=== PATIENT | male | born 1990 | race African-American/Black ===

== ENCOUNTER 2020-12-16 13:48 | Emergency (ER) | payer SELFPAY ==
[~2020-12-16] VITALS: Ht 185.4 cm; Wt 79.7 kg
[2020-12-16] MEDS ORDERED: IV RINGERS SOLUTION,LACTATED 1,000 ML IV ONE (14:00)
[2020-12-16] MEDS ORDERED: ONDANSETRON PF 4 MG/2 ML VIAL. IVP ONE (14:00)
[2020-12-16 14:32] LABS: CALCIUM 9.6 mg/dL (8.5-10.1); CREATININE 1.4 mg/dL (0.7-1.3); GFR 59.9; POTASSIUM 3.6 mmol/L (3.5-5.1)
[2020-12-16 14:33] LABS: BASO % 1 % (0-3); EOS # 0.1 x10^3/uL (0.0-0.7); EOS % 2 % (0-3); HEMATOCRIT 42.9 % (39.0-53.0); LYMPH # 1.2 x10^3/uL (1.0-4.8); LYMPH % 27 % (24-48); MEAN CORPUSCULAR HEMOGLOBIN 30 pg (25-35); MEAN CORPUSCULAR HGB CONC 33 g/dL (31-37); MEAN CORPUSCULAR VOLUME 93 fL (79-100); MONO # 0.3 x10^3/uL (0.0-1.1); MONO % 7 % (0-9); NEUT # 2.7 x10^3uL (1.8-7.7); NEUT % 63 % (31-73); PLATELET COUNT 190 x10^3/uL (140-400); RED BLOOD COUNT 4.62 x10^6/uL (4.30-5.70); RED CELL DISTRIBUTION WIDTH 14.1 % (11.5-14.5); WHITE BLOOD COUNT 4.2 x10^3/uL (4.0-11.0)
--- NOTE | 2020-12-16 14:35 | PHYS DOC ---
Past History Past Medical History: No Pertinent History Past Surgical History: No Surgical History Alcohol Use: Occasionally Adult General Chief Complaint Chief Complaint: SYNCOPE HPI HPI Patient is a 30-year-old male presents to the emergency department via EMS for a near syncopal episode while working today. Patient reports he went out drinking last night, states he drank a half a pint or so of whiskey. Patient states he did not eat any food last night or this morning or this afternoon. Patient states he drank some water. Patient states he also drinks some Gatorade. 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 Patient states he became very hot and dizzy and thought he might pass out. Patient states his coworkers became worried and called 911 who brought him to the emergency department. Patient denies any loss of consciousness, diaphoretic episodes, chest pain, shortness of breath, recent fever chills, denies vision changes. Patient states he smokes cigarettes, denies illicit drug use. Patient denies any other physical complaints or physical concerns. Review of Systems Review of Systems 14 body systems of review of systems have been reviewed. See HPI for pertinent positives and negative responses, otherwise all other systems are negative, nonpertinent or noncontributory. Current Medications Current Medications Current Medications Medications (Trade) Dose Ordered Sig/Maine Start Time Stop Time Status Last Admin Dose Admin Lactated Ringer's 1,000 ml @ 0 mls/hr 1X ONCE 12/16/20 14:00 12/16/20 14:13 DC 12/16/20 14:12 1,000 MLS/HR Ondansetron HCl (Zofran) 4 mg 1X ONCE 12/16/20 14:00 12/16/20 14:13 DC 12/16/20 14:12 4 MG Allergies Allergies Allergies Coded Allergies Type Severity Reaction Last Updated Verified No Known Drug Allergies 12/16/20 No Physical Exam Physical Exam Constitutional: Well developed, well nourished, no acute distress, non-toxic appearance. 30-year-old male no apparent distress. HENT: Normocephalic, atraumatic, bilateral external ears normal, oropharynx moist, no oral exudates, nose normal. Eyes: PERRLA, EOMI, conjunctiva normal, no discharge. Neck: Normal range of motion, no tenderness, supple, no stridor. No meningismus signs, no nuchal rigidity. Cardiovascular:Heart rate regular rhythm, no murmur heart sounds S1-S2 auscultation. Lungs & Thorax: Bilateral breath sounds clear to auscultation no adventitious lung sounds appreciated. Abdomen: Bowel sounds normal, soft, no tenderness, no masses, no pulsatile masses. Skin: Warm, dry, no erythema, no rash. Back: No tenderness, no CVA tenderness. Extremities: No tenderness, no cyanosis, no clubbing, ROM intact, no edema. Neurologic: Alert and oriented X 3, normal motor function, normal sensory function, no focal deficits noted. Psychologic: Affect normal, judgement normal, mood normal. Current Patient Data Vital Signs Laboratory Tests Test 12/16/20 14:08 White Blood Count 4.2 x10^3/uL Red Blood Count 4.62 x10^6/uL Hemoglobin 14.0 g/dL Hematocrit 42.9 % Mean Corpuscular Volume 93 fL Mean Corpuscular Hemoglobin 30 pg Mean Corpuscular Hemoglobin Concent 33 g/dL Red Cell Distribution Width 14.1 % Platelet Count 190 x10^3/uL Neutrophils (%) (Auto) 63 % Lymphocytes (%) (Auto) 27 % Monocytes (%) (Auto) 7 % Eosinophils (%) (Auto) 2 % Basophils (%) (Auto) 1 % Neutrophils # (Auto) 2.7 x10^3uL Lymphocytes # (Auto) 1.2 x10^3/uL Monocytes # (Auto) 0.3 x10^3/uL Eosinophils # (Auto) 0.1 x10^3/uL Basophils # (Auto) 0.0 x10^3/uL Sodium Level 140 mmol/L Potassium Level 3.6 mmol/L Chloride Level 101 mmol/L Carbon Dioxide Level 23 mmol/L Anion Gap 16 Blood Urea Nitrogen 9 mg/dL Creatinine 1.4 mg/dL Estimated GFR (Cockcroft-Gault) 59.9 Glucose Level 121 mg/dL Calcium Level 9.6 mg/dL Ethyl Alcohol Level < 10 mg/dL Current Medications Medications (Trade) Dose Ordered Sig/Maine Route PRN Reason Start Time Stop Time Status Last Admin Dose Admin Ondansetron HCl (Zofran) 4 mg 1X ONCE IVP 12/16/20 14:00 12/16/20 14:13 DC 12/16/20 14:12 Lactated Ringer's 1,000 ml @ 0 mls/hr 1X ONCE IV 12/16/20 14:00 12/16/20 14:13 DC 12/16/20 14:12 Sodium Chloride 1,000 ml @ 1,000 mls/hr 1X ONCE IV 12/16/20 15:15 12/16/20 16:14 12/16/20 15:15 Vital Signs Date Time Temp Pulse Resp B/P (MAP) Pulse Ox O2 Delivery O2 Flow Rate FiO2 12/16/20 13:57 98.7 57 16 122/73 (89) 98 Room Air EKG EKG EKG performed at 1401 by house respiratory therapy staff shows a normal sinus rhythm without ectopy with a heart rate of 65 bpm, MS interval 0.154, QTc interval 0.429, no acute STEMI, no ACS, no acute ischemia appreciated, EKG interpreted by ED attending physician Dr. Argueta. Radiology/Procedures Radiology/Procedures [] Heart Score C/O Chest Pain: No Risk Factors: Risk Factors: DM, Current or recent (<one month) smoker, HTN, HLP, family history of CAD, obesity. Risk Scores: Risk Factors: DM, Current or recent (<one month) smoker, HTN, HLP, family history of CAD, obesity. Course & Med Decision Making Course & Med Decision Making Pertinent Labs and Imaging studies reviewed. (See chart for details) 30-year-old male, vital signs reviewed, presents emergency department concerning near syncopal episode at work today. Physical examination concerning for mild dehydration. CBC, BMP, urinalysis assay, EtOH level was drawn in the emergency department, IV saline lock, 1 L LR was given in the ED. After period of time, the patient states he is feeling better, will give second liter IV normal saline. After period of time, reevaluation of the patient, patient states she feels 100% better and is ready to go home. Patient denies any nausea dizziness visual disturbances or headaches. 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 Patient gave verbal understanding of discharge home instructions, staying hydrated while at work, follow-up with primary care as needed, return to ER precautions or concerns, patient was discharged home without incident. Dragon Disclaimer Dragon Disclaimer This electronic medical record was generated, in whole or in part, using a voice recognition dictation system. Departure Departure: Impression: Primary Impression: Dehydration, mild Disposition: HOME / SELF CARE / HOMELESS Condition: GOOD Referrals: PCP,UNKNOWN (PCP) ZOIE CARVAJAL Patient Instructions: Dehydration, Adult Additional Instructions: You are seen today in the emergency department for an dizziness fell while you are at work, your lab work was suggestive of mild dehydration. You were given 2 L of IV fluids in the emergency department which resolved your symptoms. I encourage you to increase your water intake especially with working outside in warm environments. Please follow-up with your primary care physician for ongoing evaluation of dehydration problems. If you are unable to secure an appointment soon with your doctor, I have provided you with a primary care provider that you may use, KATE Patino. Please return to the emergency department for worsening symptoms or other concerns. EMERGENCY DEPARTMENT GENERAL DISCHARGE INSTRUCTIONS Thank you for coming to [facility] (ED) today and trusting us with you care. We trust that you had a positivie experience in our Emergency Department. If you wish to speak to the department management, you may call the director at [phone]. YOUR FOLLOW UP INSTRUCTIONS ARE FOLLOWS: 1. Do you have a private Doctor? If you do not have a private doctor, please ask for a resource list of physicians or clinics that may be able to assist you with follow up care. 2. The Emergency Physician has interpreted your x-rays. The X-Ray specialist will also review them. If there is a change in the findings, you will be notified in 48 hours when at all possible. 3. A lab test or culture has been done, your results will be reviewed and you will be notified if you need a change in treatment. ADDITIONAL INSTRUCTIONS AND INFORMATION: 1. Your care today has been supervised by a physician who is specially trained in emergency care. Many problems require more than one evaluation for a complete diagnosis and treatment. We recommend that you schedule your follow up appointment as recommended to ensure complete treatment of you illness or injury. If you are unable to obtain follow up care and continue to have a problem, or if your condition worsens, we recommend that you return to the ED. 2. We are not able to safely determine your condition over the phone nor are we able to give sound medical advice over the phone. For these safety reasons, if you call for medical advice we will ask you to come to the ED for further evaluation. 3. If you have any questions regarding these discharge instructions please call the ED at [phone]. SAFETY INFORMATION: In the interest of safety, wellness, and injury prevention; we encourage you to wear your sealbelt, if you smoke; quite smoking, and we encourage family to use a protective helmet for bicycling and other sporting events that present an increased risk for head injury. IF YOUR SYMPTOMS WORSEN OR NEW SYMPTOMS DEVELOP, OR YOU HAVE CONCERNS ABOUT YOUR CONDITION; OR IF YOUR CONDITION WORSENS WHILE YOU ARE WAITING FOR YOUR FOLLOW UP APPOINTMENT; EITHER CONTACT YOUR PRIMARY CARE DOCTOR, THE PHYSICIAN WHOSE NAME AND NUMBER YOU WERE GIVEN, OR RETURN TO THE ED IMMEDIATELY. LUCIA CHO APRN Dec 16, 2020 14:35
--- NOTE | 2020-12-16 14:41 | EKG ---
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
[2020-12-16] MEDS ORDERED: IV NORMAL SALINE 1,000ML 1,000 ML IV ONE (15:15)
[2020-12-16 16:11] VITALS: BP 130/82
[2020-12-16 16:15] LABS: BILIRUBIN,URINE NEG (NEG); CLARITY,URINE CLEAR; COLOR,URINE AMBER; GLUCOSE,URINE NEG (NEG); NITRITE,URINE NEG (NEG)
[2020-12-16 16:19] LABS: BACTERIA,URINE FEW /HPF (0-FEW); WBC,URINE OCC /HPF (0-4)
[2020-12-16 16:20] LABS: SQUAMOUS EPITHELIAL CELL,UR FEW /LPF
[2020-12-16 16:38] LABS: BARBITURATES NEG (NEG); BENZODIAZEPINES NEG (NEG); CANNABINOIDS NEG (NEG); COCAINE POS (NEG); METHADONE NEG (NEG); OPIATES NEG (NEG); PHENCYCLIDINE NEG (NEG)
[2020-12-16 16:40] LABS: AMPHETAMINE/METHAMPHETAMINE NEG (NEG)
== END 2020-12-16 16:13 | disposition home or self-care (01) ==
LOC: ER 13:48
DX: E86.0 Dehydration (principal); R55 Syncope and collapse
CPT/HCPCS: 36415; 80048; 80307; 81001; 85025; 93005; 96361; 96374; 99284; G0480; J2405; J7030; J7120

== ENCOUNTER 2021-02-24 13:57 | Inpatient (IN) | payer SELFPAY ==
[~2021-02-24] VITALS: Ht 180.3 cm; Wt 79.4 kg
[2021-02-24 15:27] VITALS: BP 148/91
[2021-02-24 20:16] VITALS: BP 123/69
[2021-02-24 23:00] VITALS: BP 122/76
[2021-02-25 06:30] VITALS: BP 130/81
--- NOTE | 2021-02-25 10:52 | HP ---
ADMISSION HISTORY AND PHYSICAL ATTENDING PHYSICIAN: Dr. Rodriguez. CHIEF COMPLAINT: Substance abuse and alcohol intoxication. HISTORY OF PRESENT ILLNESS: The patient is a 30-year-old gentleman who was evaluated in the Emergency Department at [facility] across the street from . He had substance abuse with multi drugs, urine drug screen was positive. He also was intoxicated with alcohol with a blood alcohol level of 267. The patient is very groggy. He was obtunded. His vital signs were stable. He did not have any airway compromise. He needed to be admitted for further treatment and evaluation. He had some thoughts of suicidal ideations. Because [facility] from their ER. I was gracious enough to accept the patient here for treatment. The PA team has been consulted and they came by earlier, they will see him again today. This morning when I saw him, he was alert, sober. He did not have any suicidal ideations. PAST MEDICAL HISTORY: Significant for polysubstance abuse. He was dishonorably discharged. DRUG HISTORY: As noted. ALLERGIES: He has no recorded drug allergies. MEDICATIONS: No prescription meds at this time. FAMILY HISTORY: Unobtainable. REVIEW OF SYSTEMS: Significant for the substance abuse. He has chronic alcohol issues. I could not get further details from him. PHYSICAL EXAMINATION: GENERAL: When I saw him, this is a healthy, well-developed young male, who did not appear malnourished. VITAL SIGNS: Showed a blood pressure of 140/90, pulse is 72 and regular. He was afebrile, oxygen saturation 99% on room air. HEENT: Head is without trauma. Pupils are reactive. Sclerae nonicteric. Oropharynx is clear. NECK: Supple, no bruits. LUNGS: Otherwise clear. CARDIOVASCULAR: Regular heart tones. No gallops. ABDOMEN: Soft. EXTREMITIES: Without edema. NEUROLOGIC: Focally intact. Speech is fluent. No deficits. SKIN: Warm and dry. PERTINENT LABORATORY STUDIES: From the [place] yesterday reveals his CBC to be unremarkable. Hemoglobin 15.1 g/dL with a white count of 5600. Electrolytes within normal range. Liver panel was normal. Blood alcohol level was 267. Urine drug screen positive for cocaine and benzodiazepine . ASSESSMENT: This 30-year-old gentleman has: 1. Acute alcohol intoxication. 2. Polysubstance abuse. 3. Supposedly history of suicidal ideations. PLAN: 1. Admit to our telemetry unit. 2. He will need a 1 on 1 patient safety and security officer. 3. PAT team has been consulted to assess his psychiatric status. We will keep him here. He is medically stable at this time. Should they have a safe discharge I will discharge him after they see him again. CARMEN DR: Alexei TID: [id number]
[2021-02-25 11:37] VITALS: BP 136/87
--- NOTE | 2021-02-25 16:07 | DS ---
DATE OF DISCHARGE: 02/25/2021 ATTENDING PHYSICIAN: Dr. Rodriguez. FINAL DISCHARGE DIAGNOSES: 1. Acute alcohol intoxication, resolved. 2. Polysubstance abuse. 3. Underlying depression with suicidal ideation. HISTORY AND PHYSICAL: The patient is a 30-year-old gentleman admitted from the [facility] ER. They could not care for him due to his history of being discharged dishonorably. He was intoxicated with substance abuse. Blood alcohol level was 267. He has been despondent with suicidal ideation. PHYSICAL EXAMINATION: Please see the dictated note. PERTINENT LABORATORY AND X-RAY STUDIES: Are on the [place] database. COURSE IN THE HOSPITAL: We admitted him. 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 He did well. He woke up. He ate breakfast. He had no new complaints. The PAT team was able to see him. They have implemented outpatient evaluation and followup. They felt that he was not a suicidal risk and he was stable for discharge. He is stable from a medical standpoint. In the meantime, I wrote him a script for generic Prozac 40 mg p.o. daily. This will be on the minimal amount. PLAN: Strong encouragement to avoid alcohol and drug abuse, whether or not he will do this remains to be seen. He was discharged then from our hospital in stable condition with a plan for followup care. Please refer to the PAT team note. ELIZABETH/JORGE/MICHEL DR: Alexei TID: [id number] CC: CUONG Keating
== END 2021-02-25 13:55 | disposition home or self-care (01) | DRG 897 ==
LOC: 1 SOUTH 15:05
PROVIDERS: ADMIT Hospitalist; ATTEND Hospitalist
DX: F10.129 Alcohol abuse with intoxication, unspecified (principal); R45.851 Suicidal ideations; F32.9 Major depressive disorder, single episode, unspecified; Y90.8 Blood alcohol level of 240 mg/100 ml or more; Z79.899 Other long term (current) drug therapy; F19.10 Other psychoactive substance abuse, uncomplicated
CPT/HCPCS: 99406

== ENCOUNTER 2021-05-18 09:50 | Emergency (ER) | payer SELFPAY ==
[~2021-05-18] VITALS: Ht 180.3 cm; Wt 78.0 kg
--- NOTE | 2021-05-18 10:05 | EKG ---
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
[2021-05-18 10:32] LABS: BASO % 1 % (0-3); EOS # 0.3 x10^3/uL (0.0-0.7); EOS % 6 % (0-3); HEMATOCRIT 42.2 % (39.0-53.0); HEMOGLOBIN 14.2 g/dL (13.0-17.5); LYMPH # 1.2 x10^3/uL (1.0-4.8); LYMPH % 27 % (24-48); MEAN CORPUSCULAR HEMOGLOBIN 31 pg (25-35); MEAN CORPUSCULAR HGB CONC 34 g/dL (31-37); MEAN CORPUSCULAR VOLUME 92 fL (79-100); MONO # 0.5 x10^3/uL (0.0-1.1); MONO % 12 % (0-9); NEUT # 2.5 x10^3uL (1.8-7.7); NEUT % 55 % (31-73); PLATELET COUNT 94 x10^3/uL (140-400); RED CELL DISTRIBUTION WIDTH 13.8 % (11.5-14.5); WHITE BLOOD COUNT 4.6 x10^3/uL (4.0-11.0)
[2021-05-18 10:46] LABS: CALCIUM 8.7 mg/dL (8.5-10.1); CREATININE 1.2 mg/dL (0.7-1.3); GFR 86.6; POTASSIUM 3.5 mmol/L (3.5-5.1)
[2021-05-18 10:52] LABS: ALBUMIN/GLOBULIN RATIO 1.1 (1.0-1.7); TOTAL BILIRUBIN 0.4 mg/dL (0.2-1.0); TOTAL PROTEIN 7.6 g/dL (6.4-8.2)
[2021-05-18 11:30] LABS: BARBITURATES NEG (NEG); BENZODIAZEPINES NEG (NEG); CANNABINOIDS POS (NEG); COCAINE NEG (NEG); METHADONE NEG (NEG); OPIATES NEG (NEG); PHENCYCLIDINE NEG (NEG)
[2021-05-18 11:32] LABS: AMPHETAMINE/METHAMPHETAMINE NEG (NEG)
--- NOTE | 2021-05-18 11:34 | PHYS DOC ---
Past History Past Medical History: No Pertinent History Additional Past Medical Histor: One seizure in January (PATRICK OSEI APRN) Past Surgical History: No Surgical History (PATRICK OSEI APRN) Alcohol Use: Occasionally Social History Narrative: occasionally (PATRICK OSEI APRN) General Adult EDM: Chief Complaint: SEIZURE HPI: HPI: Patient is a 30-year-old male who presents after having a seizure while at work. Patient was seen here in February for same complaint,, and was for seizure. Patient was admitted at that time for alcohol withdrawal and suicidal ideation. Patient denies following up with neurology. Patient states that he drinks every day and recently had been on a roger. Patient denies any injuries. Patient was not postictal. Patient is alert and oriented. (PATRICK OSEI APRN) Review of Systems: Review of Systems: ROS At least 10 ROS systems have been reviewed and are negative except as documented in the HPI. General: Negative except as outlined in HPI above. Skin: Negative except as outlined in HPI above. HEENT: Negative except as outlined in HPI above. Neck: Negative except as outlined in HPI above. Respiratory: Negative except as outlined in HPI above.. Cardiovascular: Negative except as outlined in HPI above. Abdomen: Negative except as outlined in HPI above. : Negative except as outlined in HPI above. Back/MSK: Negative except as outlined in HPI above. Neuro: Negative except as outlined in HPI above. Psych: Negative except as outlined in HPI above. (PATRICK OSEI APRN) Allergies: Allergies: Allergies Coded Allergies Type Severity Reaction Last Updated Verified No Known Drug Allergies 12/16/20 No (PATRICK OSEI APRN) Physical Exam: PE: Constitutional: Well developed, well nourished, no acute distress, non-toxic appearance. [] HENT: Normocephalic, atraumatic, bilateral external ears normal, oropharynx moist, no oral exudates, nose normal. [] Eyes: PERRLA, EOMI, conjunctiva normal, no discharge. [] Neck: Normal range of motion, no tenderness, supple, no stridor. [] Cardiovascular:Heart rate sinus tachycardia, no murmur [] Lungs & Thorax: Bilateral breath sounds clear to auscultation [] Abdomen: Bowel sounds normal, soft, no tenderness, no masses, no pulsatile masses. [] Skin: Warm, dry, no erythema, no rash. [] Back: No tenderness, no CVA tenderness. [] Extremities: No tenderness, no cyanosis, no clubbing, ROM intact, no edema. [] Neurologic: Alert and oriented X 3, normal motor function, normal sensory function, no focal deficits noted. [] Psychologic: Affect normal, judgement normal, mood normal. [] (PATRICK OSEI APRN) Current Patient Data: Labs: Laboratory Tests Test 05/18/21 10:08 05/18/21 10:17 05/18/21 10:19 Glucose (Fingerstick) 129 mg/dL (70-99) H White Blood Count 4.6 x10^3/uL (4.0-11.0) Red Blood Count 4.60 x10^6/uL (4.30-5.70) Hemoglobin 14.2 g/dL (13.0-17.5) Hematocrit 42.2 % (39.0-53.0) Mean Corpuscular Volume 92 fL (79-100) Mean Corpuscular Hemoglobin 31 pg (25-35) Mean Corpuscular Hemoglobin Concent 34 g/dL (31-37) Red Cell Distribution Width 13.8 % (11.5-14.5) Platelet Count 94 x10^3/uL (140-400) L Neutrophils (%) (Auto) 55 % (31-73) Lymphocytes (%) (Auto) 27 % (24-48) Monocytes (%) (Auto) 12 % (0-9) H Eosinophils (%) (Auto) 6 % (0-3) H Basophils (%) (Auto) 1 % (0-3) Neutrophils # (Auto) 2.5 x10^3uL (1.8-7.7) Lymphocytes # (Auto) 1.2 x10^3/uL (1.0-4.8) Monocytes # (Auto) 0.5 x10^3/uL (0.0-1.1) Eosinophils # (Auto) 0.3 x10^3/uL (0.0-0.7) Basophils # (Auto) 0.0 x10^3/uL (0.0-0.2) Sodium Level 136 mmol/L (136-145) Potassium Level 3.5 mmol/L (3.5-5.1) Chloride Level 99 mmol/L (98-107) Carbon Dioxide Level 23 mmol/L (21-32) Anion Gap 14 (6-14) Blood Urea Nitrogen 14 mg/dL (8-26) Creatinine 1.2 mg/dL (0.7-1.3) Estimated GFR (Cockcroft-Gault) 86.6 BUN/Creatinine Ratio 12 (6-20) Glucose Level 129 mg/dL (70-99) H Lactic Acid Level 5.9 mmol/L (0.4-2.0) *H Calcium Level 8.7 mg/dL (8.5-10.1) Total Bilirubin 0.4 mg/dL (0.2-1.0) Aspartate Amino Transferase (AST) 53 U/L (15-37) H Alanine Aminotransferase (ALT) 66 U/L (16-63) H Alkaline Phosphatase 68 U/L (46-116) Total Protein 7.6 g/dL (6.4-8.2) Albumin 4.0 g/dL (3.4-5.0) Albumin/Globulin Ratio 1.1 (1.0-1.7) Ethyl Alcohol Level < 10 mg/dL (0-10) Vital Signs: Vital Signs Date Time Temp Pulse Resp B/P (MAP) Pulse Ox O2 Delivery O2 Flow Rate FiO2 05/18/21 09:52 99.2 110 16 156/102 (120) 96 (PATRICK OSEI APRN) EKG: EKG: [] Sinus tachycardia. Heart rate 108. Read by Dr. Willson at 0954 (PATRICK OSEI APRN) Radiology/Procedures: Radiology/Procedures: [] (PATRICK OSEI APRN) Heart Score: C/O Chest Pain: No HEART Score for Chest Pain: HEART Score for Chest Pain Response (Comments) Value History Slighlty/Non-Suspicious 0 ECG Normal 0 Age < 45 0 Risk Factors No Risk Factors 0 Troponin < Normal Limit 0 Total 0 Risk Factors: Risk Factors: DM, Current or recent (<one month) smoker, HTN, HLP, family history of CAD, obesity. Risk Scores: Score 0 - 3: 2.5% MACE over next 6 weeks - Discharge Home Score 4 - 6: 20.3% MACE over next 6 weeks - Admit for Clinical Observation Score 7 - 10: 72.7% MACE over next 6 weeks - Early Invasive Strategies (PATRICK OSEI APRN) Course & Med Decision Making: Course & Med Decision Making Pertinent Labs and Imaging studies reviewed. (See chart for details) [] 30-year-old male presents after having a seizure at work. This is patient's second seizure. Patient was not postictal. Witness states that seizure lasted 30 seconds. Patient is alert and oriented. Patient was seen in the emergency room in February after having first seizure. Patient was admitted due to suicidal ideation and alcohol withdrawal. Patient denies following up with neurology as directed. Patient is a daily drinker and last drink was yesterday. Lactic acid was 5.9 and elevated due to recent seizure. All other labs were nonconcerning. Patient's alcohol level was negative. Discussed results with patient. Advised patient he needs to follow-up with neurology and discussed abstaining from alcohol. Patient states that he understands. Patient was also given neurology contact information. Patient is alert and oriented. Hemodynamically stable upon disposition. (PATRICK OSEI APRN) Dragon Disclaimer: Dragon Disclaimer: This electronic medical record was generated, in whole or in part, using a voice recognition dictation system. (PATRICK OSEI APRN) Attending Co-Sign The patient was seen and interviewed as well as examined at the bedside. The chart was reviewed. The case was discussed. Agree with the plan of care. (MONTRELL WILLSON DO) Departure Departure: Impression: Primary Impression: Seizure Additional Impression: Alcohol dependence Qualified Codes: F10.20 - Alcohol dependence, uncomplicated Disposition: HOME / SELF CARE / HOMELESS Condition: STABLE Referrals: PCP,NO (PCP) Patient Instructions: Seizure, Adult Additional Instructions: You were seen in the emergency room after having a seizure at work. You need to call neurology and make a follow-up appointment since this is your second seizure. Please return to emergency room with worsening symptoms or concerns. Neurology Address: [address] [address], [place] [address] EMERGENCY DEPARTMENT GENERAL DISCHARGE INSTRUCTIONS Thank you for coming to [facility] (ED) today and trusting us with you care. We trust that you had a positivie experience in our Emergency Department. If you wish to speak to the department management, you may call the director at [phone]. YOUR FOLLOW UP INSTRUCTIONS ARE FOLLOWS: 1. Do you have a private Doctor? If you do not have a private doctor, please ask for a resource list of physicians or clinics that may be able to assist you with follow up care. 2. The Emergency Physician has interpreted your x-rays. The X-Ray specialist will also review them. If there is a change in the findings, you will be notified in 48 hours when at all possible. 3. A lab test or culture has been done, your results will be reviewed and you w ill be notified if you need a change in treatment. ADDITIONAL INSTRUCTIONS AND INFORMATION: 1. Your care today has been supervised by a physician who is specially trained in emergency care. Many problems require more than one evaluation for a complete diagnosis and treatment. We recommend that you schedule your follow up appointment as recommended to ensure complete treatment of you illness or injury. If you are unable to obtain follow up care and continue to have a problem, or if your condition worsens, we recommend that you return to the ED. 2. We are not able to safely determine your condition over the phone nor are we able to give sound medical advice over the phone. For these safety reasons, if you call for medical advice we will ask you to come to the ED for further evaluation. 3. If you have any questions regarding these discharge instructions please call the ED at [phone]. SAFETY INFORMATION: In the interest of safety, wellness, and injury prevention; we encourage you to wear your sealbelt, if you smoke; quite smoking, and we encourage family to use a protective helmet for bicycling and other sporting events that present an increased risk for head injury. IF YOUR SYMPTOMS WORSEN OR NEW SYMPTOMS DEVELOP, OR YOU HAVE CONCERNS ABOUT YOUR CONDITION; OR IF YOUR CONDITION WORSENS WHILE YOU ARE WAITING FOR YOUR FOLLOW UP APPOINTMENT; EITHER CONTACT YOUR PRIMARY CARE DOCTOR, THE PHYSICIAN WHOSE NAME AND NUMBER YOU WERE GIVEN, OR RETURN TO THE ED IMMEDIATELY. Scripts No Active Prescriptions or Reported Meds PATRICK SOEI APRN May 18, 2021 11:34 MONTRELL WILLSON DO May 19, 2021 06:11
[2021-05-18 11:55] LABS: BACTERIA,URINE 0 /HPF (0-FEW); BILIRUBIN,URINE NEG (NEG); CLARITY,URINE CLEAR; COLOR,URINE YELLOW; GLUCOSE,URINE NEG (NEG); NITRITE,URINE NEG (NEG); SQUAMOUS EPITHELIAL CELL,UR FEW /LPF; WBC,URINE OCC /HPF (0-4)
[2021-05-18 11:56] LABS: HYALINE CASTS, URINE FEW /HPF
[2021-05-18 12:10] VITALS: BP 151/86
== END 2021-05-18 12:10 | disposition home or self-care (01) ==
LOC: ER 09:50
DX: R56.9 Unspecified convulsions (principal); F10.20 Alcohol dependence, uncomplicated; Y90.8 Blood alcohol level of 240 mg/100 ml or more
CPT/HCPCS: 36415; 80053; 80307; 81001; 82947; 83605; 85025; 93005; 99284; G0480